=== PATIENT | female | born 1950 | race Caucasian/White ===

== ENCOUNTER 2017-12-24 14:30 | Oncology outpatient (ONC) | payer MEDICARE, SELFPAY ==
[2017-11-08 13:06] VITALS: BP 130/80; PULSE 63; RESP 16; TEMP 37.1; O2SAT 100
--- NOTE | 2017-11-08 13:12 | ONC.PN ---
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 At that time, she presented with complicating stroke with the left-sided hemiparesis and decreased cognitive function as well as two heart attacks. She underwent a bone marrow aspiration biopsy in 1999. And according to patient the results are consistent with essential thrombocytosis. However patient said that her medical records have been lost and she has not been able to obtain the copy see 8. At the time patient's platelet counts were 1.2 million. Patient said that she has never been tested before regarding ALEXANDRA 2 mutations, CalR or Mpl. Since then patient has been on hydroxyurea. Patient overall has tolerated very well. Now patient is taking hydroxyurea 1500 mg once daily. Patient reported that after she started taking hydroxyurea, about in 2001 she developed peripheral neuropathy with tingling numbing of hands and feet. Therefore she was started on gabapentin 800 mg twice daily with significant relief of the symptoms. In addition patient has severe depression which might be related to the use of hydroxyurea. Therefore she is also on treatment with citalopram 20 mg once a day. Patient lives in [facility] only half of the year. She leaves the other half of the year in [facility]. Her most recent platelet count was 430K in June 2017. PAST MEDICAL HISTORY Essential thrombocytosis Peripheral neuropathy Rheumatoid arthritis SEASONAL ALLERGIES Past surgical history Left corrective surgery for a fallen arch Tonsillectomy in the remote past. SOCIAL HISTORY Retired project landscape architect. Denies ever using tobacco or alcohol. - Patient Self-Reported Symptoms SR Constitution: Fatigue/Malaise (though getting old, after eat, she had to sleep.), Night Sweats (mild. and went away once got back to her normal dose of hydrea.) SR ears, nose, mouth, throat issues: Bleeding gums SR Cardiovascular issues: Chest pain, discomfort, tightness, Dizzy/lightheaded SR Skin issues: Dry skin, Nail changes SR Musculoskeletal issues: Joint pain or swelling SR Neuro issues: Headache, Lightheaded/dizzy - Additional ROS All systems PM: reviewed and no additional remarkable complaints except as stated Home Medications and Allergies Home Medications Medication Instructions Recorded Confirmed Type vitamin E 400 unit PO QDAY #0 09/23/15 11/08/17 History ascorbic acid (vitamin C) 500 mg PO BID #0 09/10/16 11/08/17 History citalopram [Celexa] 20 mg PO QDAY #90 tab 09/16/16 11/08/17 Rx gabapentin [Neurontin] 800 mg PO BID #180 cap 09/16/16 11/08/17 Rx tramadol 50 mg PO PRN PRN #90 tab 10/05/16 11/08/17 Rx ferrous gluconate QID 11/08/17 History hydroxyurea 3 cap PO QDAY 11/08/17 11/08/17 History Allergies Allergy/AdvReac Type Severity Reaction Status Date / Time griseofulvin Allergy Severe SYSTEMIC Verified 11/08/17 13:06 SWELLING Penicillins Allergy Mild Verified 11/08/17 13:06 Exam Vital signs: Last Vital Signs Temp 98.7 F 11/08/17 13:06 Pulse 63 11/08/17 13:06 Resp 16 11/08/17 13:06 BP 130/80 11/08/17 13:06 Pulse Ox 100 11/08/17 13:06 - Constitutional positive no acute distress, positive average body habitus, positive cooperative - Routine HEENT Exam Head: Present: normocephalic, atraumatic Eye: Present: EOMI, PERRL, normal accommodation. Absent: conjunctival icterus ENT: Present: mucous membranes moist - Routine Neck Exam Present: supple, full ROM, JVD. Absent: carotid bruit, lymphadenopathy, thyromegaly - Routine Respiratory Exam Present: Clear to auscultation bilaterally. Absent: rales, respiratory distress, rhonchi, stridor, wheezes, crackles - Routine Cardiovascular Exam Present: RRR, S1, S2. Absent: murmur, gallop, rubs - Routine Abdominal Exam Present: soft, normoactive bowel sounds. Absent: tenderness, distended, organomegaly, mass, hernia - Routine Extremities Exam Absent: cyanosis, clubbing, edema - Routine Neurological Exam Present: alert, oriented X3, CN II-XII intact, normal reflexes, normal tone, normal speech. Absent: sensory deficit, motor deficit - Routine Psychiatric Exam Present: normal affect, normal thought process, cooperative, good insight, good judgment Results - Labs No lab results here today. Patient has been followed in our clinic about once a year. Assessment and Plan (1) Essential thrombocytosis Status: Chronic First of all at talked with the patient about her diagnosis of essential thrombocytosis. Apparently patient has been diagnosed with this disease for the past 18 years. Patient has been on hydroxyurea with good control of the platelet counts. However she has not been tested for ALEXANDRA 2 mutations as well as other mutations. I talked with her that least we need to know the molecular makeup of her essential thrombocytosis. I will order the tests today including or the MPN of the profile. In addition I will repeat the CBC CMP today especially to find out if there is any anemia or leukocytosis present. I will have the patient come back in about a week to review the results. (2) Recurrent major depressive disorder, in partial remission We will continue current antidepressive medications citalopram. (3) Peripheral neuropathy Status: Chronic Unknown etiology might be related to the use of hydroxyurea. We will continue current gabapentin 800 mg twice daily.
[2017-11-08 14:48] LABS: Add Manual Diff / Slide Review NO; Basophils Percent Auto 0.4 % (0-2); Eosinophils Percent Auto 0.8 % (2-4); Hematocrit 39.3 % (36-46); Hemoglobin 13.6 g/dL (12.0-16.0); Lymphocytes Percent Auto 29.7 % (25-40); Mean Corpuscular HGB Conc 34.6 % (30-36); Mean Corpuscular Hemoglobin 39.4 PG (26-34); Mean Corpuscular Volume 113.7 fL (80-100); Monocytes Percent Auto 7.3 % (3-14); Neutrophils Absolute Auto 2700 /uL (3000-5900); Neutrophils Percent Auto 61.8 % (50-75); Platelet Count 295 X10^3/uL (150-400); Red Blood Cell Count 3.45 X10^6/uL (4.0-5.2); Red Cell Distribution Width 12.7 % (11.6-14.8); White Blood Cell Count 4.4 X10^3/uL (4.5-11.0)
[2017-11-08 15:08] LABS: Alanine Aminotransferase 23 IU/L (9-52); Albumin 4.3 g/dL (3.5-5.0); Albumin Globulin Ratio 1.6 (1.0-2.8); Alkaline Phosphatase 61 U/L (38-126); Aspartate Aminotransferase 26 IU/L (14-36); BUN Creatinine Ratio 14.3 (6-22); Bilirubin Total 0.4 mg/dL (0.2-1.3); Blood Urea Nitrogen 10 mg/dL (7-17); Calcium 9.6 mg/dL (8.4-10.2); Carbon Dioxide 31 mmol/L (22-32); Chloride 101 mmol/L (98-107); Estimated Glomerular Filt Rate > 60.0 mL/min (>60); Globulin 2.7 g/dL (1.7-4.1); Glucose 117 mg/dL (80-110); HEMOLYSIS < 15 (0-50); Potassium 4.5 mmol/L (3.4-5.1); Sodium 141 mmol/L (137-145)
[2017-11-08 15:22] LABS: Macrocytosis 2+
--- NOTE | 2017-11-17 10:45 | ONC.SCHED ---
PT HAS NOT RETURNED PHONE CALLS TO RESCHEDULE HER APPT FROM SUNDAY 11/19. I HAVE CALLED HER 3 TIMES (11/15 TWICE AND 11/17). ERLIN STATES THAT SHE HAS ALSO CALLED THE PT. TWICE. EACH TIME WE HAVE CALLED, WE HAVE LEFT VOICEMAILS ASKING THE PT TO CALL US BACK TO RESCHEDULE HER APPOINTMENT BECAUSE THE CLINIC WILL BE CLOSED ON 11/19. SHE LIVES ON [address] AND WE WANTED TO MAKE SURE TO GIVE HER MUCH NOTICE POSSIBLE AND EVERY OPPORTUNITY WE COULD TO RESCHEDULE HER APPOINTMENT. -EASTON 11/17/17 @ [id number]
[2017-12-24 15:07] VITALS: BP 136/74; PULSE 67; RESP 17; TEMP 36.9; O2SAT 99
--- NOTE | 2017-12-24 15:15 | P.PNONC_ITS ---
PN -Subjective Interval history: Chief Complaints: 67 year old with essential thrombocytosis presents today to review the genetic testing results. 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 At that time, she presented with complicating stroke with the left-sided hemiparesis and decreased cognitive function as well as two heart attacks. She underwent a bone marrow aspiration biopsy in 1999. And according to patient the results are consistent with essential thrombocytosis. However patient said that her medical records have been lost and she has not been able to obtain the copy see . At the time patient's platelet counts were 1.2 million. Patient said that she has never been tested before regarding ALEXANDRA 2 mutations, CalR or Mpl. Since then patient has been on hydroxyurea. Patient overall has tolerated very well. Now patient is taking hydroxyurea 1500 mg once daily. Patient reported that after she started taking hydroxyurea, about in 2001 she developed peripheral neuropathy with tingling numbing of hands and feet. Therefore she was started on gabapentin 800 mg twice daily with significant relief of the symptoms. In addition patient has severe depression which might be related to the use of hydroxyurea. Therefore she is also on treatment with citalopram 20 mg once a day. Patient lives in [facility] only half of the year. She leaves the other half of the year in [facility]. Her most recent platelet count was 430K in June 2017. Interim Events: Here for review of the genetic test results. Her JAK2 V617F was positive. No MPL and CalR mutations identified. She is now taking hydroxyurea 1500 mg once daily. She tolerated very well. She is planning to go to [place] and he returned in June of next year. - Patient Self-Reported Symptoms SR Constitution: Fatigue/Malaise (though getting old, after eat, she had to sleep.), Night Sweats (mild. and went away once got back to her normal dose of hydrea.) SR ears, nose, mouth, throat issues: Bleeding gums SR Cardiovascular issues: Chest pain, discomfort, tightness, Dizzy/lightheaded SR Skin issues: Dry skin, Nail changes SR Musculoskeletal issues: Joint pain or swelling SR Neuro issues: Headache, Lightheaded/dizzy - Additional ROS All systems PM: reviewed and no additional remarkable complaints except as stated Home Medications and Allergies Home Medications Medication Instructions Recorded Confirmed Type vitamin E 400 unit PO QDAY #0 09/23/15 12/24/17 History ascorbic acid (vitamin C) 500 mg PO BID #0 09/10/16 12/24/17 History gabapentin [Neurontin] 800 mg PO BID #180 cap 09/16/16 12/24/17 Rx tramadol 50 mg PO PRN PRN #90 tab 10/05/16 12/24/17 Rx ferrous gluconate 1 tab PO QID 11/08/17 12/24/17 History hydroxyurea 3 cap PO ONCE HS 11/08/17 12/24/17 History citalopram [Celexa] 10 mg PO BID 11/23/17 12/24/17 History omeprazole magnesium [Prilosec] 5 mg PO DAILY 12/24/17 12/24/17 History Allergies Allergy/AdvReac Type Severity Reaction Status Date / Time griseofulvin Allergy Severe SYSTEMIC Verified 11/08/17 13:06 SWELLING Penicillins Allergy Mild Verified 11/08/17 13:06 Exam Vital signs: Last Vital Signs Temp 98.5 F 12/24/17 15:07 Pulse 67 12/24/17 15:07 Resp 17 12/24/17 15:07 BP 136/74 12/24/17 15:07 Pulse Ox 99 12/24/17 15:07 ECOG 1 Narrative: Constitutional: Well developed, well nourished, not in any acute respiratory distress, average body habitus, well groomed, pleasant and cooperative. HEENT: Normocephalic atraumatic. Extraocular muscle movement intact. Pupils are round, equal and reactive to light and accommodations. Anicteric sclera. No hearing difficulty; Oral mucus membrane moist and without ulcers. Neck: Supple, symmetrical, and tracheal midline; No palpable thyromegaly and no palpable lymph nodes. Respiratory: No use of accessory muscles. Clear to auscultation, and no wheezes or rales or rubs. Cardiovascular: Regular rate and rhythm, S1 and S2 normal, no murmurs gallops or rubs. No JVD. No pitting edema of lower extremities. Abdomen: Soft, nontender, non-distended, bowel sounds normal, no palpable organomegaly, no hernia, no palpable masses. Lower extremities: No palpable pedal edema. Lymphatic: no palpable lymph nodes in the neck, axillae, or groins. Musculoskeletal: normal gait and station, no clubbing, no cyanosis, no pitting edema. Skin: no rashes, no ulcers, no petechiae Neurological: Awake and alert and oriented x3. CN II-XII grossly intact. No focal motor or sensory deficit. Psychiatric: Good judgment, good insight, normal affect, normal thought process , cooperative, no depression, no anxiety. Results - Labs WBC 32.5, hemoglobin 14.9, hematocrit 43.8, platelets 269. Assessment and Plan (1) Essential thrombocytosis I reviewed the genetic tests with the patient. Patient tests showed that she is positive for JAK2 V617F mutation. Her platelet counts are within the normal range (269) Plan: 1. Continue Hydrea 1500 mg daily 2. Patient will call us when she comes back from [place] in June 2018 (2) Recurrent major depressive disorder, in partial remission We will continue current antidepressive medications citalopram. (3) Peripheral neuropathy Current visit: No Status: Chronic Unknown etiology might be related to the use of hydroxyurea. We will continue current gabapentin 800 mg twice daily.
== END 2018-01-06 13:26 ==
PROVIDERS: Family Provider Family Medicine; PCP Family Medicine; Visit Provider Internal Medicine Hematology & Oncology
DX: D47.3 Essential (hemorrhagic) thrombocythemia (principal); F33.8 Other recurrent depressive disorders; G62.9 Polyneuropathy, unspecified
CPT/HCPCS: 36415; 80053; 81219; 81270; 85025; 99214

== ENCOUNTER → 2021-11-27 08:08 | Outpatient (CLI) | payer MEDICARE, SELFPAY ==
[2021-11-27 10:16] LABS: Alanine Aminotransferase 19 IU/L (<35); Albumin Globulin Ratio 1.4 (1.0-2.8); Alkaline Phosphatase 77 U/L (38-126); Aspartate Aminotransferase 33 IU/L (14-36); BUN Creatinine Ratio 11.6 (6-22); Bilirubin Total 0.3 mg/dL (0.2-1.3); Blood Urea Nitrogen 10 mg/dL (7-17); Calcium 9.3 mg/dL (8.4-10.2); Carbon Dioxide 29 mmol/L (22-32); Chloride 99 mmol/L (98-107); Estimated Glomerular Filt Rate > 60 mL/min (>60); Globulin 2.8 g/dL (1.7-4.1); Glucose 114 mg/dL (80-110); HEMOLYSIS < 15 (0-50); Lactate Dehydrogenase 397 U/L (313-618); Potassium 4.2 mmol/L (3.4-5.1); Sodium 138 mmol/L (137-145); Total Protein 6.8 g/dL (6.3-8.2)
== END ==
PROVIDERS: Family Provider Family Medicine; PCP Family Medicine; Referring Provider Internal Medicine Medical Oncology; Visit Provider Internal Medicine Medical Oncology
DX: D47.3 Essential (hemorrhagic) thrombocythemia (principal); D75.81 Myelofibrosis
CPT/HCPCS: 36415; 80053; 83615